=== PATIENT | female | born 1980 | race Two or more races ===

== ENCOUNTER 2022-05-26 13:58 | Outpatient (CLI) | payer MEDICAID, SELFPAY ==
--- NOTE | 2022-05-26 14:00 | CRLHL7_ITS ---
For Patients: As a result of the Century Cures Act, medical imaging exams and procedure reports are released immediately into your electronic medical record. You may view this report before your referring provider. If you have questions, please contact your health care provider. Indication: UMBILICAL PAIN, R/O HERNIA Technique: Noncontrast CT abdomen and pelvis Please note that all CT scans at this facility use dose modulation, iterative reconstruction, and/or weight-based dosing when appropriate to reduce radiation dose to as low as reasonably achievable. Comparison: 12/26/2016 Findings: There is no abdominal wall hernia. Facet degeneration is present at L5-S1. No compression fracture is noted. Mild degenerative joint disease of both hips. The lung bases are clear. Calcification noted within the right hepatic lobe inferiorly. Gallbladder absent. No biliary obstruction. No ascites. Spleen normal. Normal pancreas. Adrenal glands unremarkable. Normal kidneys. The appendix is normal. Unremarkable bladder. Postoperative changes of hysterectomy and bilateral salpingo-oophorectomy. No adnexal mass. No free air, free fluid or abscess. No bowel obstruction. Impression: No abdominal wall hernia. Please note that all CT scans at this facility use dose modulation, iterative reconstruction, and/or weight-based dosing when appropriate to reduce radiation dose to as low as reasonably achievable. Dictated by Romulo Potter MD @ 05/27/2022 10:17:19 AM (Electronically Signed)
== END 2022-05-26 13:59 | disposition home or self-care (01) ==
LOC: CT 13:59
PROVIDERS: PCP Family Medicine; Visit Provider Surgery
DX: R10.33 Periumbilical pain (principal)
CPT/HCPCS: 74176

== ENCOUNTER 2023-02-12 17:39 | Emergency (ER) | payer MEDICAID, SELFPAY ==
[2023-02-12] VITALS (11 sets, daily range): BP systolic 120–144; BP diastolic 74–85; PULSE 56–70; RESP 16–18; TEMP 37.3; O2SAT 95–100; BMI 25.6
--- NOTE | 2023-02-12 18:55 | CRLHL7_ITS ---
For Patients: As a result of the Cures Act, medical imaging exams and procedure reports are released immediately into your electronic medical record. You may view this report before your referring provider. If you have questions, please contact your health care provider. INDICATION: Chest pain TECHNIQUE: Two view chest. COMPARISON: Chest CT dated 07/23/2020, and chest x-ray dated 07/23/2020. FINDINGS: The cardiomediastinal contours are stable. No new focal or diffuse pulmonary opacities. No pneumothorax or pleural effusion. No agressive appearing osseous lesion. Cholecystectomy clips. IMPRESSION: No acute pulmonary process. Dictated by Elieser Olsen MD @ 02/12/2023 8:15:13 PM (Electronically Signed)
[2023-02-12 19:16] LABS: Basophils Absolute Auto 0.03 K/uL (0.00-0.30); Basophils Percent Auto 0.3 % (0.0-3.0); Eosinophils Absolute Auto 0.23 K/uL (0.00-0.50); Eosinophils Percent Auto 2.5 % (0.0-7.0); Hematocrit 45.8 % (33.0-51.0); Hemoglobin* 15.4 gm/dL (12.0-16.0); Lymphocytes Percent Auto 46.9 % (20-44); Mean Corpuscular HGB Conc 34 gm/dL (32-36); Mean Corpuscular Hemoglobin 31 pg (26-34); Mean Corpuscular Volume 92 fL (80-100); Monocytes Percent Auto 5.7 % (0.0-11.0); Neutrophils Absolute Auto 4.03 K/uL (1.7-7.0); Neutrophils Percent Auto 44.6 % (42.0-72.0); Platelet Count* 209 K/uL (140-440); RDW Coefficient of Variation % 11.8 % (11.5-15.5); Red Blood Count 4.96 m/uL (4.00-5.20); White Blood Count* 9.05 K/uL (4.50-11.00)
[2023-02-12 19:17] LABS: Slide Review Reflex No
[2023-02-12] MEDS: ASPIRIN 81 MG TAB.CHEW 162 MG PO (19:17)
[2023-02-12 19:29] LABS: Chloride* 105 mmol/L (96-114); Potassium* 3.6 mmol/L (3.6-5.1); Sodium* 140 mmol/L (135-149)
[2023-02-12 19:32] LABS: Anion Gap 11 mEq/L (7-15); Blood Urea Nitrogen* 14 mg/dL (5-24); Carbon Dioxide* 24 mmol/L (20-32); Creatinine* 0.7 mg/dL (0.5-1.5); Est. Creatinine Clearance* 81.11; Estimated Glomerular Filt Rate 109 ml/min; Glucose* 91 mg/dL (60-115)
[2023-02-12 19:34] LABS: D Dimer Quantitative* < 0.27 ug/ml (0.00-0.50)
--- NOTE | 2023-02-12 20:04 | ED.GENADULT ---
HPI - General Adult General Date Seen: 02/12/23 Chief complaint: Chest Pain Stated complaint: Extreme Weakness and L chest pain Time Seen by Provider: 02/12/23 18:33 History of Present Illness HPI narrative: This is a pleasant 42-year-old female with a complex past history. History includes asthma (occasional needs for albuterol inhaler, no previous hospitalizations or ICU stays), tobacco use, anxiety, fibromyalgia, multiple previous surgeries, hysterectomy bilateral oophorectomy, cholecystectomy, esophagitis, depression, who presents the ER today with concern for fluttering chest pain. For about the past 3 days she has had a mild tightness in her chest that is been fairly continuous. This is been punctuated by multiple episodes of a fluttering discomfort that affects the left side of her chest. These fluttering discomfort carmen really not in a good pattern. No clear exacerbating or alleviating symptoms. Her chest will start having a fluttering feeling on the left side. It gradually gets faster and faster and last about 20 minutes and then gradually gets better. It bothers her left chest and goes up to her left trapezius ridge. At the time it is ending the fluttering makes her for very fatigued and weak. The pain does not really radiate to her jaw, to her back, or down her arm. No other symptoms with a fluttering. No nausea. No back pain. No abdominal pain. She has not had any swelling in her legs. No recent surgeries or immobilization. Although nurse triage notes indicate that she has been coughing, she says she has not. No fever. For no known family history of cardiac arrhythmia. She recalls that her mother had a open heart surgery in her 40s, but is not sure why (not sure of bypass or heart valve replacement). Related Data Home Medications Medication Instructions Recorded Confirmed epinephrine 0.3 mg/0.3 mL 0.3 mg IM ONCE 12/24/21 05/03/22 injection, auto-injector Allergies Allergy/AdvReac Type Severity Reaction Status Date / Time hydrocodone Allergy Severe Throat Verified 05/03/22 14:49 swelling squid Allergy Severe Throat Verified 05/03/22 14:49 swelling tramadol Allergy Intermediate Hives Verified 05/03/22 14:49 Bee venom Allergy Severe Mouth/throat Uncoded 05/03/22 14:49 swelling Mushroom Extract Complex Allergy Severe Throat Uncoded 05/03/22 14:49 swelling Ketorolac tromethamine Allergy Mild Hives and Uncoded 05/03/22 14:49 itchy PFSH PFSH Medical History (Updated 02/12/23 @ 21:58 by Tevin Baker MD) Soft tissue mass ?M79.89 - Other specified soft tissue disorders (ICD-10) depression (03/03/10) ?F53.0 - depression (ICD-10) Pharyngitis ?J02.9 - Acute pharyngitis, unspecified (ICD-10) Pain of left hip ?M25.552 - Pain in left hip (ICD-10) Muscle pain ?M79.10 - Myalgia, unspecified site (ICD-10) Mild asthma exacerbation ?J45.901 - Unspecified asthma with (acute) exacerbation (ICD-10) Gestational diabetes (03/03/10) ?O24.419 - Gestational diabetes mellitus in , unspecified control (ICD-10) Fall ?W19.XXXA - Unspecified fall, initial encounter (ICD-10) Encounter for postoperative care ?Z48.89 - Encounter for other specified surgical aftercare (ICD-10) Cough ?R05.9 - Cough, unspecified (ICD-10) Bronchitis ?J40 - Bronchitis, not specified as acute or chronic (ICD-10) Surgical History (Updated 05/03/22 @ 15:18 by Fransisca Mendoza MD) S/P bilateral oophorectomy ?Z90.722 - Acquired absence of ovaries, bilateral (ICD-10) S/P hysterectomy ?Z90.710 - Acquired absence of both cervix and uterus (ICD-10) S/P laparoscopic cholecystectomy ?Z90.49 - Acquired absence of other specified parts of digestive tract (ICD-10) History of excision of mass (2016) ?Z98.890 - Other specified postprocedural states (ICD-10) Family History (Updated 12/30/21 @ 11:37 by Khushboo Beauchamp) Mother Anxiety disorder Diabetes High blood pressure Myocardial infarction, Onset Age: 40 Son Anxiety disorder Maternal Grandmother Diabetes Breast cancer, Onset Age: 50 Myocardial infarction Systemic lupus erythematosus Father High blood pressure Uncle Colon cancer, Onset Age: 40 Aunt Lung cancer Social History (Updated 05/03/22 @ 15:19 by Fransisca Mendoza MD) Narrative: Engaged, 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 Alert. Conversant. Non toxic. Initially somewhat anxious. Uncertain about coming to the ER for her chest pain. HENT: Head: Atraumatic. Nose: Nose normal. Mouth/Throat: Oral mucosa is clear and moist. no trismus. Pharynx normal. Tonsils symmetric. No tonsillar enlargement, erythema, or exudate. Eyes: Conjunctivae normal. EOM normal. Pupils equal, round, and reactive to light. No scleral icterus. Neck: Normal range of motion. Neck supple. No tracheal deviation present. No JVD Cardiovascular: Normal rate, regular rhythm. No gallop. No friction rub. No murmur heard. Symmetric radial and PT and DP artery pulses Pulmonary/Chest: Effort normal. No stridor. No respiratory distress. No wheezes. No rales. No rhonchi . No tenderness. No rash. No shingles. No bruising. Abdominal: Soft. Bowel sounds normal. No distension. No mass. No tenderness. No rebound. No guarding. Musculoskeletal: RUE: Normal range of motion. No tenderness. No deformity LUE: Normal range of motion. No tenderness. No deformity RLE: Normal range of motion. No edema. No tenderness. No deformity LLE: Normal range of motion. No edema. No tenderness. No deformity Neurological: Alert and oriented to person, place, and time. Normal strength. CN II-VII intact. No sensory deficit. GCS eye subscore is 4. GCS verbal subscore is 5. GCS motor subscore is 6. Normal coordination Skin: Skin is warm and dry. No rash noted. No pallor. Normal capillary refill. Psychiatric: Normal mood. Normal affect. Const: Vital Signs, click to edit/add: Vital Signs - 24 hr 02/12/23 18:08 02/12/23 19:40 02/12/23 19:45 Temperature 99.2 F Pulse Rate 59 L 63 Pulse Rate [Right Pulse Oximeter] 70 Respiratory Rate 18 Blood Pressure Blood Pressure [Ri ght Upper Arm] 144/85 H Pulse Oximetry 100 98 95 Oxygen Delivery Me thod Room Air 02/12/23 20:00 02/12/23 20:02 02/12/23 20:15 Temperature Pulse Rate 63 61 61 Pulse Rate [Right Pulse Oximeter] Respiratory Rate 16 Blood Pressure 120/81 Blood Pressure [Ri ght Upper Arm] Pulse Oximetry 97 97 97 Oxygen Delivery Me thod Room Air 02/12/23 20:30 02/12/23 20:32 02/12/23 20:45 Temperature Pulse Rate 60 61 60 Pulse Rate [Right Pulse Oximeter] Respiratory Rate 16 Blood Pressure 122/74 Blood Pressure [Ri ght Upper Arm] Pulse Oximetry 98 96 96 Oxygen Delivery Me thod Room Air 02/12/23 21:00 02/12/23 21:02 Temperature Pulse Rate 61 56 L Pulse Rate [Right Pulse Oximeter] Respiratory Rate 16 Blood Pressure 122/76 Blood Pressure [Ri ght Upper Arm] Pulse Oximetry 98 97 Oxygen Delivery Me thod Room Air Course Vital Signs Vital signs: Initial Vital Signs Temperature 99.2 F 02/12/23 18:08 Temperature Source Temporal Artery Scan 02/12/23 18:08 Pulse Rate 70 02/12/23 18:08 Respiratory Rate 18 02/12/23 18:08 Respiratory Effort Normal 02/12/23 18:08 Respiratory Depth Normal 02/12/23 18:08 Respiratory Pattern Normal 02/12/23 18:08 Blood Pressure 144/85 H 02/12/23 18:08 Blood Pressure Mean 104 02/12/23 18:08 Blood Pressure Position Sitting 02/12/23 18:08 Pulse Oximetry 100 02/12/23 18:08 Oxygen Delivery Method Room Air 02/12/23 18:08 Vital Signs Temperature 99.2 F 02/12/23 18:08 Pulse Rate 70 02/12/23 18:08 Respiratory Rate 18 02/12/23 18:08 Blood Pressure 144/85 H 02/12/23 18:08 Pulse Oximetry 100 02/12/23 18:08 Oxygen Delivery Method Room Air 02/12/23 18:08 Temperature 99.2 F 02/12/23 18:08 Pulse Rate 56 L 02/12/23 21:02 Respiratory Rate 16 02/12/23 21:02 Blood Pressure 122/76 02/12/23 21:02 Pulse Oximetry 97 02/12/23 21:02 Oxygen Delivery Method Room Air 02/12/23 21:02 Medical Decision Making MDM Narrative Medical decision making narrative: This patient presents to the ER today for evaluation of chest pain with 2 different components. She has had some mild discomfort in her chest continuously for the past couple of days which is been punctuated by intermittent episodes of fluttering and increased discomfort in her left chest and left shoulder.. Differential was broad. With the fluttering chest pain, consider possible arrhythmia or ectopy. monitoring and evaluation advisor here in the ER shows evidence of palpitations, syncope or other cardiac dysrhythmia. We considered possible ACS, however workup with EKG and troponin is negative. HEART score is 2. Given time since onset of symptoms, I do not think the patient needs to be admitted for further sets of enzymes. EKG shows no evidence for pericarditis. Clinical presentation not suggestive of myocarditis. Chest x-ray shows no evidence for pneumonia, pneumothorax, pulmonary edema, pleural effusion, rib fracture, cardiomegaly. Mediastinum is normal on the x-ray. The patient has no ripping or tearing pain through to the back and has symmetric pulses on exam, no other acute neuro findings so I doubt aortic dissection. Risk of radiation and contrast exposure would outweigh the benefit of CT angiogram. We considered PE for this patient. Risk factors would be tobacco use and exogenous estrogen. Overall would be low risk. Screening D-dimer is normal. No wheezing or bronchospasm to suggest COPD/asthma. No signs of chest wall cellulitis, shingles, injury. With reasonable clinical confidence, I think the patient is safe for outpatient follow up. Consider possible outpatient Holter monitoring of fluttering chest pain episodes continue. Discussed return precautions. Questions answered. Patient voices comfort with the plan. Lab Data Labs: Lab Results 02/12/23 Range/Units 19:05 WBC 9.05 (4.50-11.00) K/uL RBC 4.96 (4.00-5.20) m/uL Hgb 15.4 (12.0-16.0) gm/dL Hct 45.8 (33.0-51.0) % MCV 92 (80-100) fL MCH 31 (26-34) pg MCHC 34 (32-36) gm/dL RDW Coeff of Anthony 11.8 (11.5-15.5) % Plt Count 209 (140-440) K/uL Neut % (Auto) 44.6 (42.0-72.0) % Lymph % (Auto) 46.9 H (20-44) % [place] % (Auto) 5.7 (0.0-11.0) % Eos % (Auto) 2.5 (0.0-7.0) % Baso % (Auto) 0.3 (0.0-3.0) % Neut # (Auto) 4.03 (1.7-7.0) K/uL Lymph # (Auto) 4.20 H (0.90-2.90) K/uL [place] # (Auto) 0.50 (0.00-0.90) K/UL Eos # (Auto) 0.23 (0.00-0.50) K/uL Baso # (Auto) 0.03 (0.00-0.30) K/uL Abs Immat Gran (auto) 0.00 (0.00-0.30) K/uL Imm/Tot Granulo (auto) 0.0 % D-Dimer Quant (PE/DVT) < 0.27 (0.00-0.50) ug/ml Sodium 140 (135-149) mmol/L Potassium 3.6 (3.6-5.1) mmol/L Chloride 105 (96-114) mmol/L Carbon Dioxide 24 (20-32) mmol/L Anion Gap 11 (7-15) mEq/L BUN 14 (5-24) mg/dL Creatinine 0.7 (0.5-1.5) mg/dL Estimated Creat Clear 81.11 Estimated GFR 109 ml/min Glucose 91 (60-115) mg/dL Calcium 10.0 (8.4-10.6) mg/dL Troponin I < 0.01 L (0.01-0.04) ng/mL TSH 0.778 (0.270-4.200) uIU/mL ECG Data Attestation: I personally reviewed and interpreted this ECG as follows: Interpretation: Normal sinus rhythm rate 63 FL 142 QRS axis : Normal axis. No pathologic Q-waves. ST segment/T wave: No ST segment elevation or depression. QTc: 405 No delta waves, WPW, short FL, Brugada syndrome, or other arrhythmogenic abnormality. Discharge Plan Discharge Clinical Impression: Heart palpitations, Chest pain Patient Disposition: Home, Self-Care Condition: Stable Instructions: Chest Pain (ED), Heart Palpitations (DC) Additional Instructions: Please return to the ER right away if you have any worsening symptoms. If you are still having intermittent fluttering in her chest, follow-up with your doctor within the next 2-3 days. They may consider ordering an outpatient heart monitor for you. Prescriptions: No Action epinephrine 0.3 mg/0.3 mL auto-injector 0.3 mg IM ONCE Rx Instructions: as a single dose; may repeat once Follow Up/Referrals: Romulo Boswell MD [Primary Care Provider] - Stand Alone Forms: [employer] Info Instructions
[2023-02-12 20:20] LABS: Troponin I* < 0.01 ng/mL (0.01-0.04)
[2023-02-12 20:21] LABS: TSH With Reflex to FT4* 0.778 uIU/mL (0.270-4.200)
== END 2023-02-12 22:10 | disposition home or self-care (01) ==
PROVIDERS: Emergency Provider Emergency Medicine; PCP Family Medicine
DX: R00.2 Palpitations (principal); R07.9 Chest pain, unspecified
CPT/HCPCS: 36415; 71046; 80048; 84443; 84484; 85025; 85379; 99283; 99284; A9270

== ENCOUNTER 2023-05-14 20:54 | Emergency (ER) | payer MEDICAID, SELFPAY ==
[2023-05-14 20:59] VITALS: BP 124/79; PULSE 79; RESP 20; TEMP 36.4; O2SAT 97
--- NOTE | 2023-05-14 22:00 | ED_ITS ---
HPI - General Adult General Date Seen: 05/14/23 Chief complaint: Cough Stated complaint: breathing issues, chest pain Time Seen by Provider: 05/14/23 21:59 History of Present Illness HPI narrative: 42-year-old female with a complex past history. History includes asthma (occasional needs for albuterol inhaler, no previous hospitalizations or ICU stays), tobacco use, anxiety, fibromyalgia, multiple previous surgeries, hysterectomy bilateral oophorectomy, cholecystectomy, esophagitis, depression who presents to the ER today with a friend for evaluation of cough, chest discomfort, headache, body aches, chills, fever. She had been sick about 3 weeks ago and was seen in the urgent care. At that time she was diagnosed with a viral illness and wheezing so she was given an albuterol inhaler and put on a 5 day burst of prednisone. She says that while on the prednisone she did not really feel any better but on the whole her cough been improving. Since 2 days ago on she has had recurrent symptoms with now work recurrent worsening cough associated with fever, sore throat, headache, body aches. She also feels like she has little bit of chest pain associated with coughing. She is worried about the cough and so asked her friend to bring her into the ER tonight. No anterior substernal chest pain. No exertional component. No recent swelling in her legs. No vomiting or diarrhea or abdominal pain. Related Data Home Medications Medication Instructions Recorded Confirmed epinephrine 0.3 mg/0.3 mL 0.3 mg IM ONCE 12/24/21 04/19/23 injection, auto-injector albuterol sulfate 90 mcg/actuation inhalation 04/19/23 04/19/23 aerosol inhaler (Ventolin HFA) estradiol 0.1 mg/24 hr weekly 1 patch transdermal 04/19/23 04/19/23 transdermal patch Previous Rx's Medication Instructions Recorded albuterol sulfate 90 mcg/actuation 2 puff inhalation Q4-6H PRN 04/19/23 aerosol inhaler shortness of breath or wheezing #1 packet benzonatate 100 mg capsule 100 mg PO TID PRN cough #10 caps 05/14/23 Allergies Allergy/AdvReac Type Severity Reaction Status Date / Time hydrocodone Allergy Severe Throat Verified 04/19/23 12:33 swelling squid Allergy Severe Throat Verified 04/19/23 12:33 swelling tramadol Allergy Intermediate Hives Verified 04/19/23 12:33 ketorolac Allergy Rash Verified 04/19/23 12:33 Bee venom Allergy Severe Mouth/throat Uncoded 04/19/23 12:33 swelling Mushroom Extract Complex Allergy Severe Throat Uncoded 04/19/23 12:33 swelling PFSH PFSH Medical History (Updated 05/14/23 @ 22:51 by Tevin Baker MD) Soft tissue mass ?M79.89 - Other specified soft tissue disorders (ICD-10) depression (03/03/10) ?F53.0 - depression (ICD-10) Pharyngitis ?J02.9 - Acute pharyngitis, unspecified (ICD-10) Pain of left hip ?M25.552 - Pain in left hip (ICD-10) Muscle pain ?M79.10 - Myalgia, unspecified site (ICD-10) Mild asthma exacerbation ?J45.901 - Unspecified asthma with (acute) exacerbation (ICD-10) Gestational diabetes (03/03/10) ?O24.419 - Gestational diabetes mellitus in , unspecified control (ICD-10) Fall ?W19.XXXA - Unspecified fall, initial encounter (ICD-10) Encounter for postoperative care ?Z48.89 - Encounter for other specified surgical aftercare (ICD-10) Cough ?R05.9 - Cough, unspecified (ICD-10) Bronchitis ?J40 - Bronchitis, not specified as acute or chronic (ICD-10) Surgical History (Updated 05/03/22 @ 15:18 by Fransisca Mendoza MD) S/P bilateral oophorectomy ?Z90.722 - Acquired absence of ovaries, bilateral (ICD-10) S/P hysterectomy ?Z90.710 - Acquired absence of both cervix and uterus (ICD-10) S/P laparoscopic cholecystectomy ?Z90.49 - Acquired absence of other specified parts of digestive tract (ICD- 10) History of excision of mass (2016) ?Z98.890 - Other specified postprocedural states (ICD-10) Family History (Updated 12/30/21 @ 11:37 by Khushboo Beauchamp) Mother Anxiety disorder Diabetes High blood pressure Myocardial infarction, Onset Age: 40 Son Anxiety disorder Maternal Grandmother Diabetes Breast cancer, Onset Age: 50 Myocardial infarction Systemic lupus erythematosus Father High blood pressure Uncle Colon cancer, Onset Age: 40 Aunt Lung cancer Social History (Updated 05/03/22 @ 15:19 by Fransisca Mendoza MD) Narrative: Engaged, 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 Alert. Conversant. Non toxic. HENT: Head: Atraumatic. Nose: Nose normal. TMs normal bilaterally. Mouth/Throat: Oral mucosa is clear and moist. no trismus. Pharynx normal. Tonsils symmetric. No tonsillar enlargement, erythema, or exudate. Eyes: Conjunctivae normal. EOM normal. Pupils equal, round, and reactive to light. No scleral icterus. Neck: Normal range of motion. Neck supple. No tracheal deviation present. Cardiovascular: Normal rate, regular rhythm. No gallop. No friction rub. No murmur heard. Symmetric radial artery pulses Pulmonary/Chest: Effort normal. No stridor. No respiratory distress. No wheezes. No rales. No rhonchi . No tenderness. Abdominal: Soft. Bowel sounds normal. No distension. No mass. No tenderness. No rebound. No guarding. Musculoskeletal: RUE: Normal range of motion. No tenderness. No deformity LUE: Normal range of motion. No tenderness. No deformity RLE: Normal range of motion. No edema. No tenderness. No deformity LLE: Normal range of motion. No edema. No tenderness. No deformity Lymph: No cervical adenopathy. Neurological: Alert and oriented to person, place, and time. Normal strength. CN II-VII intact. No sensory deficit. GCS eye subscore is 4. GCS verbal subscore is 5. GCS motor subscore is 6. Normal coordination Skin: Skin is warm and dry. No rash noted. No pallor. Normal capillary refill. Psychiatric: Normal mood. Normal affect. Const: Vital Signs, click to edit/add: Vital Signs - 24 hr 05/14/23 20:59 Temperature 97.6 F Pulse Rate [Left P ulse Oximeter] 79 Respiratory Rate 20 Blood Pressure [Ri ght Upper Arm] 124/79 Pulse Oximetry 97 Oxygen Delivery Me thod Room Air Course Vital Signs Vital signs: Initial Vital Signs Temperature 97.6 F 05/14/23 20:59 Temperature Source Temporal Artery Scan 05/14/23 20:59 Pulse Rate 79 05/14/23 20:59 Pulse Rhythm Regular 05/14/23 20:59 Respiratory Rate 20 05/14/23 20:59 Blood Pressure 124/79 05/14/23 20:59 Blood Pressure Mean 94 05/14/23 20:59 Blood Pressure Position Sitting 05/14/23 20:59 Pulse Oximetry 97 05/14/23 20:59 Oxygen Delivery Method Room Air 05/14/23 20:59 Vital Signs Temperature 97.6 F 05/14/23 20:59 Pulse Rate 79 05/14/23 20:59 Respiratory Rate 20 05/14/23 20:59 Blood Pressure 124/79 05/14/23 20:59 Pulse Oximetry 97 05/14/23 20:59 Oxygen Delivery Method Room Air 05/14/23 20:59 Temperature 97.6 F 05/14/23 20:59 Pulse Rate 79 05/14/23 20:59 Respiratory Rate 20 05/14/23 20:59 Blood Pressure 124/79 05/14/23 20:59 Pulse Oximetry 97 05/14/23 20:59 Oxygen Delivery Method Room Air 05/14/23 20:59 Medications Administered Medications: Discontinued Medications Generic Name Dose Route Start Last Admin Trade Name Grantq PRN Reason Stop Dose Admin Benzonatate 100 mg 05/14/23 22:22 05/14/23 22:44 Benzonatate 100 Mg Capsule PO 05/14/23 22:23 100 mg ONCE ONE Administration Ibuprofen 600 mg 05/14/23 22:21 05/14/23 22:44 Ibuprofen 600 Mg Tablet PO 05/14/23 22:22 600 mg ONCE ONE Administration Medical Decision Making [facility] Narrative Medical decision making narrative: This patient presents for evaluation of cough, fever, body aches, headache, as well as chest pain. This is consistent with an upper respiratory tract infection. Clinically I suspect coronavirus infection but Viral testing is negative for COVID, influenza, RSV.. There is no signs at this point of serious bacterial infection such as OM, RPA, epiglottitis, COMMUNITY ENGAGEMENT SPECIALIST, strep pharyngitis, pneumonia, sinusitis, meningitis, bacteremia, serious bacterial infection. With her chest pain, EKG was obtained at triage and shows no evidence for cardiac ischemia, pericarditis, arrhythmia. With recent URI, now with secondary worsening consider bacterial superinfection. There is no focal consolidation on her lung exam. However since she is a smoker with a prolonged course and now worsening, we will cover her with a course of doxycycline for community-acquired pneumonia. Will hold off on for chest x-ray for now. At this point in the she needs lab workup. There are no gastrointestinal symptoms at this point and no signs of dehydration. Close followup with primary care physician is indicated. Return to ED for fever > 103, protracted vomiting, confusion, or other worsening. Lab Data Labs: Lab Results 05/14/23 Range/Units 21:08 SARS-CoV-2 (PCR) Negative SARS-CoV-2 (Negative) Influenza Type A (PCR) Negative PCR FLU A (Negative) Influenza Type B (PCR) Negative PCR FLU B (Negative) RSV (PCR) Negative PCR RSV (Negative) Discharge Plan Discharge Clinical Impression: Cough Patient Disposition: Home, Self-Care Condition: Stable Instructions: Acute Bronchitis (ED) Additional Instructions: As we discussed, please return to the ER right away if you have worsening cough, worsening chest pain, high fever, trouble breathing, or any concerns. Prescriptions: New benzonatate 100 mg capsule 100 mg PO TID PRN (Reason: cough) Qty: 10 0RF No Action albuterol sulfate [Ventolin HFA] 90 mcg/actuation HFA aerosol inhaler inhalation estradiol 0.1 mg/24 hr patch weekly 1 patch transdermal albuterol sulfate 90 mcg/actuation HFA aerosol inhaler 2 puff inhalation Q4-6H PRN (Reason: shortness of breath or wheezing) Qty: 1 1RF epinephrine 0.3 mg/0.3 mL auto-injector 0.3 mg IM ONCE Rx Instructions: as a single dose; may repeat once Follow Up/Referrals: Romulo Boswell MD [Primary Care Provider] - Stand Alone Forms: [employer] Info Instructions
[2023-05-14 22:04] LABS: PCR FLU A Negative PCR FLU A (Negative); PCR FLU B Negative PCR FLU B (Negative); PCR RSV Negative PCR RSV (Negative)
[2023-05-14 22:06] LABS: SARS PCR* Negative SARS-CoV-2 (Negative)
[2023-05-14] MEDS: IBUPROFEN 600 MG TABLET PO (22:44)
[2023-05-14] MEDS: BENZONATATE 100 MG CAPSULE PO (22:44)
--- NOTE | 2023-05-14 23:05 | PC.NURSE ---
patient DC accompanied by family member, no further questions about DC instructions. RR even and unlabored. patient ambulatory
== END 2023-05-14 23:02 | disposition home or self-care (01) ==
PROVIDERS: Emergency Provider Emergency Medicine; PCP Family Medicine
DX: R05.9 Cough, unspecified (principal)
CPT/HCPCS: 87631; 93005; 99283; 99284; A9270

== ENCOUNTER 2023-07-07 15:10 | Emergency (ER) | payer MEDICAID, SELFPAY ==
[2023-07-07 15:34] VITALS: BP 124/85; PULSE 78; RESP 22; TEMP 36.9; O2SAT 99
--- NOTE | 2023-07-07 15:41 | ED.ANXIETY ---
HPI - Anxiety General Time Seen by Provider: 15:41 Date Seen: 07/07/23 Chief Complaint: Anxiety Stated Complaint: Anxiety, shortness of breath Time Seen by Provider: 07/07/23 15:13 Source: patient, RN notes reviewed and old records reviewed Mode of arrival: ambulatory Limitations: no limitations History of Present Illness HPI narrative: 42-year-old female who comes in today with palpitations, throbbing headache, nausea, anxiety. Patient reports history of anxiety and ADHD, her daughter left the house on Tuesday and patient has not been able to contact her since then. Daughter has a history of substance abuse. Patient says that she has been feeling a lot of nausea, difficulty sleeping, racing thoughts, palpitations, and crying. She denies abdominal pain, diarrhea, urinary symptoms. She denies suicide or homicide ideation. She has not taken any medications for this. Related Data Home Medications Medication Instructions Recorded Confirmed epinephrine 0.3 mg/0.3 mL 0.3 mg IM ONCE 12/24/21 06/27/23 injection, auto-injector albuterol sulfate 90 mcg/actuation inhalation 04/19/23 06/27/23 aerosol inhaler (Ventolin HFA) estradiol 0.1 mg/24 hr weekly 1 patch transdermal 04/19/23 06/27/23 transdermal patch Previous Rx's Medication Instructions Recorded albuterol sulfate 90 mcg/actuation 2 puff inhalation Q4-6H PRN 04/19/23 aerosol inhaler shortness of breath or wheezing #1 packet lorazepam 0.5 mg tablet (Ativan) 0.5 mg PO TID PRN #20 tabs 07/07/23 Allergies Allergy/AdvReac Type Severity Reaction Status Date / Time hydrocodone Allergy Severe Throat Verified 06/27/23 13:35 swelling squid Allergy Severe Throat Verified 06/27/23 13:35 swelling tramadol Allergy Intermediate Hives Verified 06/27/23 13:35 ketorolac Allergy Rash Verified 06/27/23 13:35 Bee venom Allergy Severe Mouth/throat Uncoded 06/27/23 13:35 swelling Mushroom Extract Complex Allergy Severe Throat Uncoded 06/27/23 13:35 swelling PFSH PFSH Medical History (Updated 07/07/23 @ 16:48 by Edward Wilson MD) Soft tissue mass ?M79.89 - Other specified soft tissue disorders (ICD-10) depression (10/19/10) ?F53.0 - depression (ICD-10) Pharyngitis ?J02.9 - Acute pharyngitis, unspecified (ICD-10) Pain of left hip ?M25.552 - Pain in left hip (ICD-10) Muscle pain ?M79.10 - Myalgia, unspecified site (ICD-10) Mild asthma exacerbation ?J45.901 - Unspecified asthma with (acute) exacerbation (ICD-10) Gestational diabetes (03/03/10) ?O24.419 - Gestational diabetes mellitus in , unspecified control (ICD-10) Fall ?W19.XXXA - Unspecified fall, initial encounter (ICD-10) Encounter for postoperative care ?Z48.89 - Encounter for other specified surgical aftercare (ICD-10) Cough ?R05.9 - Cough, unspecified (ICD-10) Bronchitis ?J40 - Bronchitis, not specified as acute or chronic (ICD-10) Surgical History (Updated 05/03/22 @ 15:18 by Fransisca Mendoza MD) S/P bilateral oophorectomy ?Z90.722 - Acquired absence of ovaries, bilateral (ICD-10) S/P hysterectomy ?Z90.710 - Acquired absence of both cervix and uterus (ICD-10) S/P laparoscopic cholecystectomy ?Z90.49 - Acquired absence of other specified parts of digestive tract (ICD-10) History of excision of mass (2016) ?Z98.890 - Other specified postprocedural states (ICD-10) Family History (Updated 12/30/21 @ 11:37 by Khushboo Beauchamp) Mother Anxiety disorder Diabetes High blood pressure Myocardial infarction, Onset Age: 40 Son Anxiety disorder Maternal Grandmother Diabetes Breast cancer, Onset Age: 50 Myocardial infarction Systemic lupus erythematosus Father High blood pressure Uncle Colon cancer, Onset Age: 40 Aunt Lung cancer Social History (Updated 05/03/22 @ 15:19 by Fransisca Mendoza MD) Narrative: 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 Tobacco abuse- 1/2 pack/day, 10 pack years Smoking Status: Current every day smoker Do you use any of these nicotine containing products: Vaping Products Second hand tobacco smoke exposure: No How often do you have a drink containing alcohol: monthly or less How often do you have six or more drinks on one occasion: Never AUDIT-C Alcohol total score: 1 Non-prescribed substance use: marijuana (any form) service: No Exam Narrative: Exam Narrative: General: Well-developed and well-nourished, no acute distress Head: Atraumatic and normocephalic Eyes: Pupils are equal reactive, extraocular motions intact, conjunctiva clear ENT: External nose and ears are normal, posterior pharynx without erythema or exudate Neck: No midline cervical tenderness, full spontaneous range of motion the neck, trachea midline, no adenopathy Heart: Regular rate and rhythm no murmurs or thrills Lungs: Clear to auscultation bilaterally without wheezes or crackles Abdomen: Soft, nontender, nondistended with active bowel sounds Musculoskeletal: No tenderness, deformity, or edema Neurologic: Awake, alert, and oriented x3, no gross focal neurologic deficits, cranial nerves intact as tested Psych: Alternating anxious and tearful but answers questions appropriately, good eye contact, denies suicide or homicide ideation Skin: No rashes Const: Vital Signs, click to edit/add: Vital Signs - 24 hr 07/07/23 15:34 Temperature 98.4 F Pulse Rate [Pulse Oximeter] 78 Respiratory Rate 22 Blood Pressure [Ri ght Upper Arm] 124/85 Pulse Oximetry 99 Oxygen Delivery Me thod Room Air Course Course ED Course: Patient seen and examined, prior records are reviewed. Reviewed prior emergency department visit from May 14 the patient was seen was a cough, also reviewed prior urgent care visit from June 27 when patient was seen after a fall. Patient presents today with palpitations, nausea, racing thoughts Reevaluation(s) Time of Reevaluation #1: 16:46 Reevaluation #1: Patient recheck. She is feeling better. We discussed ongoing treatment medication. She has had a therapist in the past that she had along well with and will contact him again. Also has some outpatient resources for therapy. We discussed short-term and long-term treatment of her acute anxiety. Short-term, patient will be given Ativan for home today but would benefit from longer-term SSRI or SNRI, will follow up with her primary care doctor to discuss this Vital Signs Vital signs: Initial Vital Signs Temperature 98.4 F 07/07/23 15:34 Temperature Source Temporal Artery Scan 07/07/23 15:34 Pulse Rate 78 07/07/23 15:34 Pulse Rhythm Regular 07/07/23 15:34 Pulse Strength 0+ Absent 07/07/23 15:34 Respiratory Rate 22 07/07/23 15:34 Blood Pressure 124/85 07/07/23 15:34 Blood Pressure Mean 98 07/07/23 15:34 Blood Pressure Position Sitting 07/07/23 15:34 Pulse Oximetry 99 07/07/23 15:34 Oxygen Delivery Method Room Air 07/07/23 15:34 Vital Signs Temperature 98.4 F 07/07/23 15:34 Pulse Rate 78 07/07/23 15:34 Respiratory Rate 22 07/07/23 15:34 Blood Pressure 124/85 07/07/23 15:34 Pulse Oximetry 99 07/07/23 15:34 Oxygen Delivery Method Room Air 07/07/23 15:34 Temperature 98.4 F 07/07/23 15:34 Pulse Rate 78 07/07/23 15:34 Respiratory Rate 22 07/07/23 15:34 Blood Pressure 124/85 07/07/23 15:34 Pulse Oximetry 99 07/07/23 15:34 Oxygen Delivery Method Room Air 07/07/23 15:34 Medications Administered Medications: Discontinued Medications Generic Name Dose Route Start Last Admin Trade Name Freq PRN Reason Stop Dose Admin Lorazepam 0.5 mg 07/07/23 16:02 07/07/23 16:08 Lorazepam 0.5 Mg Tablet PO 07/07/23 16:03 0.5 mg ONCE ONE Administration Discharge Plan Discharge Clinical Impression: Stressful life events affecting family and household, Acute anxiety Patient Disposition: Home w/ Parent or Adult Condition: Improved Instructions: Anxiety (ED) Additional Instructions: Follow-up to establish care with a therapist or counselor Follow-up with Dr. Boswell for further treatment Activity Level: Activity as Tolerated Discharge Diet: Regular Prescriptions: New lorazepam [Ativan] 0.5 mg tablet 0.5 mg PO TID PRNQty: 20 0RF No Action albuterol sulfate [Ventolin HFA] 90 mcg/actuation HFA aerosol inhaler inhalation estradiol 0.1 mg/24 hr patch weekly 1 patch transdermal albuterol sulfate 90 mcg/actuation HFA aerosol inhaler 2 puff inhalation Q4-6H PRN (Reason: shortness of breath or wheezing) Qty: 1 1RF epinephrine 0.3 mg/0.3 mL auto-injector 0.3 mg IM ONCE Rx Instructions: as a single dose; may repeat once Follow Up/Referrals: Romluo Boswell MD [Primary Care Provider] - Stand Alone Forms: [employer] Info Instructions
[2023-07-07] MEDS: LORazepam 0.5 MG TABLET PO (16:08)
== END 2023-07-07 16:58 | disposition home or self-care (01) ==
PROVIDERS: Emergency Provider Family Medicine; PCP Family Medicine
DX: F41.9 Anxiety disorder, unspecified (principal); Z63.8 Other specified problems related to primary support group
CPT/HCPCS: 99283; 99284; A9270

== ENCOUNTER 2024-02-13 09:15 | Outpatient (CLI) | payer MEDICAID, SELFPAY ==
--- OUTSIDE RECORDS SUMMARY | 2024-02-15 13:13 | XMS_ITS | Clinical Summary ---
Author Organization [facility] Address [address] [place] [address] Care Team Providers Care Marketing Analyst Name Role Phone Meaghan Kessler MD Primary Care Provider Source Comments You are receiving this document as you are listed as the primary care provider,follow-up provider, or the patient has been referred to you for consultation.This is in compliance with the Medicare andMedicaid EHR Incentive Program,which states Providers who transition their patient to another setting of careor provider of care or refers their patient to another provider of care shouldprovide summary care record for each transition of care or referral. [facility] Allergies Active Allergy Reactions Criticality Noted Date Comments Hydrocodone-Acetaminophen Rash High 03/03/2018 Tramadol Rash High 03/03/2018 Medications Medication Sig Dispensed Refills Start Date End Date Status VENTOLIN HFA 108 (90 Base) MCG/ACT inhaler INAHLE 2 PUFFS EVERY 4 TO 6 HOURS NEEDED 3 12/23/2017 Active escitalopram oxalate (LEXAPRO) 10 MG tablet Take 10 mg by mouth daily. 3 02/18/2018 Active estradiol 2 MG tablet Take 2 mg by mouth daily. 1 02/20/2018 Active Meloxicam (MOBIC) 15 MG tablet Take 15 mg by mouth daily. 0 02/10/2018 Active pantoprazole (PROTONIX) 40 MG tablet Take 40 mg by mouth daily. 3 02/20/2018 Active Active Problems Problem Noted Date Diagnosed Date Obesity 03/03/2018 Esophagitis 03/03/2018 Mild intermittent asthma without complication depression 03/03/2018 S/P total abdominal hysterectomy 03/03/2018 Lipoma 03/03/2018 Tobacco use 03/03/2018 Social History Tobacco Use Types Packs/Day Years Used Date Smoking Tobacco: Never Assessed Sex and Gender Information Value Date Recorded Sex Assigned at Not on file Gender Identity Not on file Sexual Orientation Not on file Last Filed Vital Signs Vital Sign Reading Time Taken Comments Blood Pressure 105/48 03/03/2018 1:24 PM CDT Pulse 57 03/03/2018 1:24 PM CDT Temperature - - Respiratory Rate - - Oxygen Saturation - - Inhaled Oxygen Concentration - - Weight 83.4 kg (183 lb 14.4 oz) 03/03/2018 1:24 PM CDT Height - - Body Mass Index - - Plan of Treatment Health Maintenance Due Date Last Done Comments Cervical Cancer Screening Due 1978 Colon Cancer Screening Plan Due 1978 Hep C Screening (Preventive Services) 1978 Mammogram 1978 Asthma ACT 1982 HIV Screening (Preventive Services) 1994 Adult Preventive Visit 1996 DTaP/Tdap/Td (1 - Tdap) 1997 HepB (1) 1997 Cholesterol 11/19/2023 COVID-19 Vaccine (1 - 2023-2 5 season) 2024 Influenza (#1) 2024 Zoster/Shingles (1 of 2) 2028 HPV Vaccine Aged Out No longer eligi ble based on patient's age to complete this topic HepA Aged Out No longer eligi ble based on patient's age to complete this topic Hib Aged Out No longer eligi ble based on patient's age to complete this topic IPV (Polio) Aged Out No longer eligi ble based on patient's age to complete this topic MCV4 Aged Out No longer eligi ble based on patient's age to complete this topic Pneumococcal Aged Out No longer eligi ble based on patient's age to complete this topic Care Teams Marketing Analyst Relationship Specialty Start Date End Date Meaghan Kessler MD [address] [place] [address] PCP - General Family Practice 02/10/18
--- OUTSIDE RECORDS SUMMARY | 2024-02-15 13:14 | XMS_ITS | Clinical Summary ---
Author Organization [facility] Address [place], [place] [address] Care Team Providers Care Senior [employer] U[employer] Developer Name Role Phone Yadira Wolf MD Primary Care Provider [phone] Allergies Active Allergy Reactions Criticality Noted Date Comments Bee Pollen 12/09/2009 bees Shiitake Mushroom (Lentinus Edodes) 12/09/2009 Tongue swells.Allergic to all mushrooms Medications Medication Sig Dispensed Refills Start Date End Date Status ibuprofen (ADVIL; MOTRIN) 600 mg tablet Take 1 tablet by mouth every 6 hours. Maximum of 3200 mg in 24 hours. 40 tablet 1 12/13/2009 Active albuterol HFA (PRO-AIR,VENTOLIN,PRO VENTIL) 90 mcg/actuation inhaler Inhale 2 Puffs by mouth 4 times daily if needed. 0 03/14/2014 Active albuterol (PROVENTIL) 0.083 % neb solution Every 4-6 Hours as needed 01/20/2017 Active docusate (COLACE) 100 mg capsule Take 1 capsule by mouth once daily if needed for Constipation. 0 02/28/2018 Active polyethylene glycol (MIRALAX) 17 g powder for solution Take 17 g by mouth once daily if needed for Constipation. 0 02/28/2018 Active escitalopram oxalate (LEXAPRO) 10 mg tablet Take 1 tablet by mouth once daily. 01/27/2018 Active meloxicam 15 mg tablet Take 1 tablet by mouth once daily. 02/10/2018 Active estradiol (ESTRACE) 2 mg tablet Take 1 tablet by mouth once daily. 12/29/2017 Active pantoprazole (PROTONIX) 40 mg delayed-release tablet Take 1 tablet by mouth once daily. 04/11/2017 Active Active Problems Problem Noted Date Diagnosed Date Hip impingement with labral tear 03/29/2014 Repeat LST section at 34 4/7 weeks 11/14 Resolved Problems Problem Noted Date Diagnosed Date Resolved Date Postoperative ileus 12/11/2009 08/26/19 15 33-34 completed weeks of gestation(765.27) 12/10/2009 08/25/2014 delivery 12/10/2009 08/25/2014 Previous delivery, antepartum condition or complication 12/09/2009 12/10/2009 Overview (12/09/2009): Previous C/S(3) uterine contractions, antepartum 12/09/2009 12/10/2009 Tubal ligation 12/09/2009 08/25/2014 Overview (12/10/2009): modified Varinder BTL Social History Tobacco Use Types Packs/Day Years Used Date Smoking Tobacco: Every Day Cigarettes 0.2 12 Smokeless Tobacco: Never Tobacco Cessation:Ready to Q uit: Yes; Counseling Given: Yes Alcohol Use Standard Drinks/Week Comments Not Asked 0 (1 standard drink = 0.6 oz pur e alcohol) Sex and Gender Information Value Date Recorded Sex Assigned at Not on file Gender Identity Not on file Sexual Orientation Not on file Obstetrics History Para Term AB IAB SAB Ectopic Multiple Livin g Live Births 6 4 3 1 2 2 3 Date Outcome GA Total Labor Labor/2nd/3rd Weight Sex Type Anes PTL Afua A1 A5 Name Clin SAB SAB Term Term Term 0 34w 0d 2.92 kg (6 lb 7 oz) M C-Sec tion 8 9 [place] NS,BB Delivery Location:[facility] Last Filed Vital Signs Vital Sign Reading Time Taken Comments Blood Pressure 113/74 02/28/2018 4:11 PM CDT tow er Pulse 73 02/28/2018 4:11 PM CDT Temperature 37 ??C (98.6 ??F) 08/24/2014 2:27 PM CDT Respiratory Rate 16 12/13/2009 8:00 AM CDT Oxygen Saturation 96% 02/28/2018 4:11 PM CDT Inhaled Oxygen Concentration - - Weight 83.8 kg (184 lb 12.8 oz) 02/28/2018 4:11 PM CDT Height 157.5 cm (5' 2) 12/09/2009 8:52 PM CDT Body Mass Index 33.8 12/09/2009 8:52 PM CDT Plan of Treatment Health Maintenance Due Date Last Done Comments Tdap 1989 Depression screening for age 12+ 1990 HIV for age 15-65 1993 BMI (ht and wt on same day) for age 18+ 1996 Hepatitis C screening for ag e 18-79 1996 Tetanus booster 1998 Pap test for age 21-65 01/12/2014 , 09/09/2004 Colonoscopy through age 75 11/19/2023 Lipids for age 45-75 11/19/2023 Mammogram for age 45-75 11/19/2023 COVID-19 vaccine series (2023- season) 2024 Influenza for age 9-49 01/15/2024 Pneumococcal series for age 6-64 Aged Out No longer eligible b ased on patient's age to complete this topic Procedures Procedure Name Priority Date/Time Associated Diagnosis Comments GYNECOLOGICAL PANEL Timed 01/12/2011 9 :46 AM CDT from Last 3 Months or Most Recently Relevant to Health Maintenance Results * GYNECOLOGICAL PANEL (01/12/2011 9:46 AM CDT) CYTOLOGY CYTOPATHOLOGY REPORT [facility] Status: Final Status ?[id number] CLINICAL INFORMATION Last Date of LMP ? :01/05/11 Last Pap Date ?:2008 Last Pap Result ?:WNL ABN Cropsey/Bx Past 5 YRS :LEEP Cropsey/Bx done today ? :No HPV Request ?:HPV if ASCUS SPECIMEN SOURCE ?:Cervical/vagina l ThinPrep Vial, screening SPECIMEN ADEQUACY ?:Satisfactory for evaluation Endocervical component ? present. INTERPRETATION/RES ULT Negative for intraepithelial lesion or malignancy (NIL) Non-Neoplastic Findings Parakeratosis Cytology 1st Screener ??:cmm Signed by ?: ??Agustin Power M.D. This specimen was screened by the FDA approved ThinPrep Imaging System and manually reviewed. NOTE: ??The Pap test is a screening technique, not a diagnostic procedure. ??It is used ??primarily to screen for squamous cancers and precursor lesions. ??Published studies have shown that it is subject to both false negative and false positive results. ??The pap test should not be used as the sole means to diagnose or exclude pre-malignant and malignant lesions. COLLECTED:01/12/11 ? ACCESSIONED: ??01/14/11 ?? SIGNED: ??01/20/11 [facility] P[facility] [place] CODE NIL [facility] 01/12/2011 9:46 AM CDT 01/14/2011 9:46 AM CDT Yadira Wolf MD PATHOLOGY/CYTOLOGY [facility] [place]IP [address] [address] [place] [id number] from Last 3 Months or Most Recently Relevant to Health Maintenance Advance Directives * Full Code (Latest Code Status on File) Date Activated Date Inactivated Comments 12/09/2009 9:07 PM 12/13/2009 4:04 PM Care Teams Senior [employer] Developer Relationship Specialty Start Date End Date Yadira Wolf MD [address] [place] [address] PCP - General Obstetrics and Gynecology 08/25/14
== END 2024-02-13 09:16 | disposition home or self-care (01) ==
LOC: NFLDREF 02-15 13:02
PROVIDERS: PCP Family Medicine; Referring Provider Family Medicine; Visit Provider Nurse Practitioner Family
DX: M54.9 Dorsalgia, unspecified (principal); R82.90 Unspecified abnormal findings in urine
CPT/HCPCS: 87086